=== PATIENT | female | born 2000 | race Two or more races ===

== ENCOUNTER 2023-04-20 16:40 | Emergency (ER) | payer BC, SELFPAY ==
[2023-04-20] VITALS (12 sets, daily range): BP systolic 114–150; BP diastolic 65–98; PULSE 86–115; RESP 12–24; TEMP 36.4; O2SAT 97–99; BMI 35.9
--- NOTE | 2023-04-20 16:49 | ED_ITS ---
HPI - Chest Pain General Chief Complaint: Chest Pain Stated Complaint: FAST HEART RATE Time Seen by Provider: 04/20/23 16:49 Source: patient Mode of arrival: walk-in Limitations: no limitations History of Present Illness HPI narrative: The patient presented With left-sided upper chest pain that started almost a week ago she mentioned that the pain is constant and she had a long trip of [address] trip before this happened, the patient denies any Fever chills or coughing or any exposure to anybody with similar symptoms, and did take one test at home and it was negative The patient also complaining of some nausea, and she has been feeling her heart racing Related Data Previous Rx's Medication Instructions Recorded diclofenac sodium 50 mg 50 mg PO Q12H PRN pain #10 tabs 04/20/23 tablet,delayed release Allergies Allergy/AdvReac Type Severity Reaction Status Date / Time No Known Drug Allergies Allergy Verified 04/20/23 16:49 Review of Systems ROS Status of ROS 10 or more systems reviewed and unremarkable except as noted in history and below Exam Narrative Exam Narrative: Nurses notes and vital signs reviewed and patient is not hypoxic. General: Well-appearing and in no apparent distress. Skin: Warm, dry, no pallor noted. No rash. Head: Normocephalic, atraumatic. Neck: Supple, non-tender. Eye: Pupils are equal, round and EOMI. No scleral icterus. Ears, Nose, Mouth, and Throat: TM are clear, no nasal mucosal hypertrophy. Oral mucosa is moist, no posterior oropharynx erythema, uvula is mid-line Cardiovascular: Regular Rate and Rhythm without murmur, gallop or rub. Respiratory: No accessory muscle use or respiratory distress. Lungs are clear to auscultation, no wheezing, rales or rhonchi Chest Wall: no tenderness Back: No midline thoracic or lumbar vertebral tenderness. No CVA tenderness Musculoskeletal: normal ROM, no calf or popliteal tenderness, no lower extremity edema/swelling GI: Abdomen is soft, non-distended. Normal bowel sounds. No masses appreciated. No tenderness to palpation. No rebound, guarding, or rigidity noted. Neurological: A&O x4. No cranial nerve dysfunction observed. No truncal ataxia. Moves all extremities. Sensation intact. Psychiatric: Cooperative and interactive. Normal mood and affect. Constitutional Vital Signs, click to edit/add: Last Vital Signs Temp 97.6 F 04/20/23 16:45 Pulse 86 04/20/23 19:00 Resp 24 04/20/23 19:00 BP 114/82 H 04/20/23 19:00 Pulse Ox 98 04/20/23 19:00 O2 Del Method Room Air 04/20/23 16:45 Course Vital Signs Vital signs: Vital Signs Temperature 97.6 F 04/20/23 16:45 Pulse Rate 113 H 04/20/23 16:45 Respiratory Rate 20 04/20/23 16:45 Blood Pressure 150/90 H 04/20/23 16:45 Pulse Oximetry 99 04/20/23 16:45 Oxygen Delivery Method Room Air 04/20/23 16:45 Temperature 97.6 F 04/20/23 16:45 Pulse Rate 86 04/20/23 19:00 Respiratory Rate 24 04/20/23 19:00 Blood Pressure 114/82 H 04/20/23 19:00 Pulse Oximetry 98 04/20/23 19:00 Oxygen Delivery Method Room Air 04/20/23 16:45 MDM - Chest Pain MDM Narrative Medical decision making narrative: EKG showing sinus tachycardia with a heart rate of one hundred and [address] elevation or depression CBC and chemistry should not acute pathology and the d-dimer was not elevated The patient chest x-ray is pending but it did not show any acute pathology and preliminary reading And was started on hydration as well as Toradol pt HR was 83 at the the time Toradol was provided Patient to mention that the heart rate was up and down and is not always elevated The patient is to followup with primary care physician in next 2-3 days or to return to the emergency department should any of the signs or symptoms worsen or new symptoms develop. The patient agrees with the following Diagnosis and Treatment plan and the patient will be discharged home. Lab Data Labs: Lab Results 04/20/23 Range/Units 17:08 WBC 10.1 (4.0-11.0) 10^3/uL RBC 4.77 (4.20-5.40) 10^6/uL Hgb 13.8 (12.0-16.0) g/dL Hct 40.6 (36.0-48.0) % MCV 85.1 (81.0-99.0) fL MCH 28.9 (26.7-34.0) pg MCHC 34.0 (29.9-35.2) g/dL RDW 12.1 (11.0-15.0) % Plt Count 341 (150-450) 10^3/uL MPV 9.8 (9.5-13.5) fL Neut % (Auto) 69.8 (43.0-75.0) % Lymph % (Auto) 20.6 (20.5-60.0) % [place] % (Auto) 7.1 (1.7-12.0) % Eos % (Auto) 1.7 (0.9-7.0) % Baso % (Auto) 0.5 (0.2-2.0) % Neut # (Auto) 7.0 H (1.4-6.5) 10^3/uL Lymph # (Auto) 2.1 (1.2-3.8) 10^3/uL [place] # (Auto) 0.7 (0.3-0.8) 10^3/uL Eos # (Auto) 0.2 (0.0-0.7) 10^3/uL Baso # (Auto) 0.1 (0.0-0.1) 10^3/uL Abs Immat Gran (auto) 0.03 (0.00-0.03) 10^3/uL Imm/Tot Granulo (auto) 0.3 (0.0-0.5) % PT 9.7 (9.0-11.6) sec INR <0.93 APTT 29.1 (22.3-36.2) sec D-Dimer <0.19 (<=0.59) mg/L FEU Sodium 137 (136-145) mmol/L Potassium 3.9 (3.5-5.1) mmol/L Chloride 105 (98-107) mmol/L Carbon Dioxide 25.9 (21.0-32.0) mmol/L Anion Gap 10.0 BUN 10.0 (7.0-18.0) mg/dL Creatinine 0.83 (0.55-1.02) mg/dL Est GFR ( Amer) >60 (>=60) Est GFR (Non-Af Amer) >60 (>=60) BUN/Creatinine Ratio 12.0 Glucose 102 (74-106) mg/dL Calcium 8.8 (8.5-10.1) mg/dL Total Bilirubin 0.3 (0.2-1.0) mg/dL AST 20 (15-37) U/L ALT 141 H (14-59) U/L Alkaline Phosphatase 99 (46-116) U/L Troponin I High Sens <4.0 L (4.0-51.3) pg/mL Total Protein 7.5 (6.4-8.2) g/dL Albumin 3.8 (3.4-5.0) g/dL Globulin 3.7 g/dL Albumin/Globulin Ratio 1.0 HCG, Quant <1 mIU/mL Discharge Plan Discharge Chief Complaint: Chest Pain Clinical Impression: Atypical chest pain Patient Disposition: Home, Self-Care Time of Disposition Decision: 18:44 Condition: Good Mode of Transportation: Private Vehicle Prescriptions / Home Meds: New diclofenac sodium 50 mg tablet,delayed release (DR/EC) 50 mg PO Q12H PRN (Reason: pain) Qty: 10 0RF Instructions: Chest Wall Pain (ED) Stand Alone Forms: Portal Instructions Referrals: Jolie Jacobsen MD [Primary Care Provider] - 1 week Discharge Date/Time: 04/20/23 19:15
--- NOTE | 2023-04-20 16:55 | ECG_ITS ---
The [facility] Test Date: 2023-04-20 Pat Name: Dany Perales Department: Room: - Gender: Female Maintenance Groundskeeper: : 2000 Requested By: NAN BRANCH Order Number: [id number] Reading MD: PRISCILLA MCMULLEN Measurements Intervals [place] Rate: 109 P: 57 DC: 146 QRS: 107 QRSD: 82 T: 49 QT: 330 QTc: 394 Interpretive Statements 1120 Sinus tachycardia 6220 Possible left atrial enlargement 7100 Abnormal right axis deviation 9140 abnormal rhythm ECG No previous ECG available for comparison Electronically Signed On 04-21-2023 7:12:28 EDT by PRISCILLA MCMULLEN
--- NOTE | 2023-04-20 16:55 | XR_ITS ---
The [address] [address] Patient Name: RAFA STALLWORTH MRN: [id number] date: 2000 Sex: F Assigned Patient Location: ER Current Patient Location: ER Accession/Order Number: [id number] Exam Date: 04/20/2023 18:16 Report Date: 04/20/2023 18:43 At the request of: MAKENZIE HERNANDEZ Procedure: XR chest 1V EXAM: XR chest 1V at 1742 hours HISTORY: pain COMPARISON: None. TECHNIQUE: AP upright portable chest x-ray FINDINGS: The heart is not enlarged and the vasculature is not distended. No acute infiltrate, effusion or pneumothorax is identified. The osseous structures are grossly intact. XR/XR chest 1V IMPRESSION: No acute infiltrate or evidence of cardiac decompensation. Direct comparison with a previous study may be helpful in determining the chronicity of these findings. Electronically authenticated by: ASHLEY PADILLA Date: 04/20/2023 18:43
[2023-04-20 17:35] LABS: Basophils Absolute Auto 0.1 10^3/uL (0.0-0.1); Basophils Percent Auto 0.5 % (0.2-2.0); Eosinophils Absolute Auto 0.2 10^3/uL (0.0-0.7); Eosinophils Percent Auto 1.7 % (0.9-7.0); Hematocrit 40.6 % (36.0-48.0); Hemoglobin 13.8 g/dL (12.0-16.0); Immature Granulocytes Abs Auto 0.03 10^3/uL (0.00-0.03); Immature Granulocytes Pct Auto 0.3 % (0.0-0.5); Lymphocytes Absolute Auto 2.1 10^3/uL (1.2-3.8); Lymphocytes Percent Auto 20.6 % (20.5-60.0); Mean Corpuscular Hemoglobin 28.9 pg (26.7-34.0); Mean Corpuscular Volume 85.1 fL (81.0-99.0); Mean Platelet Volume 9.8 fL (9.5-13.5); Monocytes Absolute Auto 0.7 10^3/uL (0.3-0.8); Monocytes Percent Auto 7.1 % (1.7-12.0); Neutrophils Percent Auto 69.8 % (43.0-75.0); Platelet Count 341 10^3/uL (150-450); Red Blood Count 4.77 10^6/uL (4.20-5.40); Red Cell Distribution Width 12.1 % (11.0-15.0); White Blood Count 10.1 10^3/uL (4.0-11.0)
[2023-04-20 17:56] LABS: Alanine Aminotransferase 141 U/L (14-59); Albumin Level 3.8 g/dL (3.4-5.0); Alkaline Phosphatase 99 U/L (46-116); Aspartate Amino Transferase 20 U/L (15-37); Bilirubin Total 0.3 mg/dL (0.2-1.0); Calcium 8.8 mg/dL (8.5-10.1); Carbon Dioxide 25.9 mmol/L (21.0-32.0); Chloride 105 mmol/L (98-107); Estimated GFR (African America >60 (>=60); Estimated GFR (Non-African Ame >60 (>=60); Globulin 3.7 g/dL; Glucose 102 mg/dL (74-106); HCG Quantitative <1 mIU/mL; Potassium 3.9 mmol/L (3.5-5.1); Sodium 137 mmol/L (136-145); Total Protein 7.5 g/dL (6.4-8.2); Troponin I High Sensitivity <4.0 pg/mL (4.0-51.3)
[2023-04-20 17:58] LABS: Partial Thromboplastin Time 29.1 sec (22.3-36.2); Prothrombin Time 9.7 sec (9.0-11.6)
[2023-04-20 18:04] LABS: D Dimer <0.19 mg/L FEU (<=0.59); INR <0.93
[2023-04-20] MEDS: 0.9 % SODIUM CHLORIDE 1,000 ML 1000 ML IV (18:32)
[2023-04-20] MEDS: FAMOTIDINE/PF 20 MG/2 ML VIAL IV (18:32)
[2023-04-20] MEDS: KETOROLAC TROMETHAMINE 30 MG/ML VIAL 15 MG IVP (18:33)
[2023-04-20 19:00] LABS: HCG Qualitative Urine* NEGATIVE (NEGATIVE)
== END 2023-04-20 19:15 | disposition home or self-care (01) ==
PROVIDERS: Emergency Provider Emergency Medicine; PCP Family Medicine
DX: R07.89 Other chest pain (principal)
CPT/HCPCS: 36415; 71045; 80053; 84484; 84702; 84703; 85025; 85378; 85610; 85730; 93005; 96374; 96375; 99285

== ENCOUNTER 2023-04-24 16:16 | Outpatient (OUT) | payer BC, SELFPAY ==
[2023-04-24 16:57] LABS: Bilirubin Urine NEGATIVE (NEGATIVE); Blood Urine LARGE (NEGATIVE); Clarity Urine CLEAR (CLEAR); Color Urine YELLOW (YELLOW); Glucose Urine UA NEGATIVE (NEGATIVE); Ketones Urine NEGATIVE (NEGATIVE); Leukocyte Esterase Urine NEGATIVE (NEGATIVE); Nitrite Urine NEGATIVE (NEGATIVE); Protein Urine NEGATIVE (NEG/TRACE); pH Urine 7.5 (5.0-9.0)
[2023-04-24 18:33] LABS: Free T4 0.97 ng/dL (0.76-1.46)
[2023-04-24 18:39] LABS: Thyroid Stimulating Hormone 1.421 uIU/mL (0.358-3.740)
== END 2023-04-24 16:17 | disposition home or self-care (01) ==
LOC: LAB 16:18
PROVIDERS: PCP Family Medicine; Visit Provider Family Medicine
DX: R00.0 Tachycardia, unspecified (principal); N30.00 Acute cystitis without hematuria
CPT/HCPCS: 36415; 81003; 84439; 84443; 87086

== ENCOUNTER 2023-09-02 08:46 | Emergency (ER) | payer BC, SELFPAY ==
[2023-09-02] VITALS (9 sets, daily range): BP systolic 118–157; BP diastolic 71–102; PULSE 73–74; RESP 16–18; TEMP 36.6; O2SAT 95–99; BMI 32.3
--- NOTE | 2023-09-02 09:09 | ED_ITS ---
HPI - Back Pain/Injury General Chief Complaint: Back Pain/Injury Stated Complaint: lower back pain Time Seen by Provider: 09/02/23 09:09 Source: patient Mode of arrival: Wheelchair Limitations: no limitations History of Present Illness HPI Narrative: this patient's here complaining of left back pain. She was fine when she went to work but when she got there she says sudden onset of pain in her left flank, radiates to her left abdomen. She said that she took some leftover antibiotics the last couple days ago she had a previous diagnosis of urinary tract infection. She does not know the name the antibiotic. She does not know that she has any family or personal history of kidney stones in the past. She says she's not been having any urinary symptoms but she did know some blood in her urine previously. That's why she took a leftover antibiotics. She is not running a fever. She said the pain is made worse with twisting and movement. It did not radiate down her buttock or into her leg. She denied a previous backseat skin pains. Related Data Previous Rx's Medication Instructions Recorded diclofenac sodium 50 mg 50 mg PO Q12H PRN pain #10 tabs 04/20/23 tablet,delayed release Allergies Allergy/AdvReac Type Severity Reaction Status Date / Time No Known Drug Allergies Allergy Verified 04/20/23 16:49 PFSH PFSH Social History Smoking status: Current every day smoker Exam Narrative Exam Narrative: awake alert appears tto be uncomfortable. She is afebrile. Problems specific examination shows on examination back there is no evidence of shingles skin lesions. There is a large tattoo. There is no gross kyphoscoliosis. She does have tenderness with percussion over the left renal area. Otherwise her skin and integument are normal. There is no respiratory distress she's not diaphoretic or clammy. Constitutional Vital Signs, click to edit/add: Last Vital Signs Temp 97.9 F 09/02/23 08:51 Pulse 74 09/02/23 08:51 Resp 18 09/02/23 08:51 BP 157/102 H 09/02/23 08:51 Pulse Ox 99 09/02/23 08:51 O2 Del Method Room Air 09/02/23 08:51 Course Vital Signs Vital signs: Vital Signs Temperature 97.9 F 09/02/23 08:51 Pulse Rate 74 09/02/23 08:51 Respiratory Rate 18 09/02/23 08:51 Blood Pressure 157/102 H 09/02/23 08:51 Pulse Oximetry 99 09/02/23 08:51 Oxygen Delivery Method Room Air 09/02/23 08:51 Temperature 97.9 F 09/02/23 08:51 Pulse Rate 74 09/02/23 08:51 Respiratory Rate 18 09/02/23 08:51 Blood Pressure 157/102 H 09/02/23 08:51 Pulse Oximetry 99 09/02/23 08:51 Oxygen Delivery Method Room Air 09/02/23 08:51 MDM - Back Pain/Injury MDM Narrative Medical decision making narrative: patient's CT scan discloses a 3 mm stone in the proximal ureter on the left side. There is very mild hydronephrosis. There is bilateral asymptomatic nephrolithiasis. Another other no other abnormalities. Her urinalysis does not suggest urinary tract infection. Explained these findings to the patient. We'll place her on medications for this condition and have her follow up with urology Discharge Plan Discharge Chief Complaint: Back Pain/Injury Clinical Impression: Ureterolithiasis Patient Disposition: Home, Self-Care Time of Disposition Decision: 10:46 Prescriptions / Home Meds: No Action diclofenac sodium 50 mg tablet,delayed release (DR/EC) 50 mg PO Q12H PRN (Reason: pain) Qty: 10 0RF Additional Instructions: [place]/Toradol/Flomax/Zofran/follow-up with Dr. Lopez in seventy-two hours Stand Alone Forms: Portal Instructions Referrals: Jolie Jacobsen MD [Primary Care Provider] - 1 week
[2023-09-02 09:10] LABS: Bilirubin Urine NEGATIVE (NEGATIVE); Blood Urine TRACE-I (NEGATIVE); Clarity Urine CLEAR (CLEAR); Color Urine LT. YELLOW (YELLOW); Glucose Urine UA NEGATIVE (NEGATIVE); Ketones Urine NEGATIVE (NEGATIVE); Leukocyte Esterase Urine NEGATIVE (NEGATIVE); Nitrite Urine NEGATIVE (NEGATIVE); Protein Urine NEGATIVE (NEG/TRACE); Specific Gravity Urine 1.025 (1.005-1.025); Urobilinogen Urine 0.2 EU/dL (0.2-1.0)
[2023-09-02 09:13] LABS: HCG Qualitative Urine* NEGATIVE (NEGATIVE); Urine Microscopic Indicated YES
[2023-09-02] MEDS: ONDANSETRON PF 4 MG/2 ML VIAL IV (09:23)
[2023-09-02] MEDS: KETOROLAC TROMETHAMINE 30 MG/ML VIAL IVP (09:24)
[2023-09-02] MEDS: HYDROMORPHONE HCL 1 MG/ML CARTRIDGE IVP (09:24)
[2023-09-02 09:25] LABS: Bacteria Urine SMALL #/HPF (NONE SEEN); Crystals Seen? None Seen #/HPF (None Seen); Mucus Urine NONE SEEN (NONE SEEN); RBC Urine 0-2 #/HPF (0-2); Squamous Epithelial Cell Urine FEW #/LPF (NONE/RARE); WBC Urine NONE SEEN #/HPF (NONE SEEN)
[2023-09-02 09:26] LABS: Basophils Percent Auto 0.3 % (0.2-2.0); Eosinophils Absolute Auto 0.2 10^3/uL (0.0-0.7); Eosinophils Percent Auto 1.6 % (0.9-7.0); Hematocrit 43.6 % (36.0-48.0); Hemoglobin 14.3 g/dL (12.0-16.0); Immature Granulocytes Abs Auto 0.02 10^3/uL (0.00-0.03); Immature Granulocytes Pct Auto 0.2 % (0.0-0.5); Lymphocytes Absolute Auto 2.3 10^3/uL (1.2-3.8); Lymphocytes Percent Auto 24.1 % (20.5-60.0); Mean Corpuscular HGB Conc 32.8 g/dL (29.9-35.2); Mean Corpuscular Hemoglobin 28.5 pg (26.7-34.0); Mean Corpuscular Volume 86.9 fL (81.0-99.0); Mean Platelet Volume 9.6 fL (9.5-13.5); Monocytes Absolute Auto 0.8 10^3/uL (0.3-0.8); Monocytes Percent Auto 8.2 % (1.7-12.0); Neutrophils Absolute Auto 6.1 10^3/uL (1.4-6.5); Neutrophils Percent Auto 65.6 % (43.0-75.0); Platelet Count 323 10^3/uL (150-450); Red Blood Count 5.02 10^6/uL (4.20-5.40); Red Cell Distribution Width 12.3 % (11.0-15.0); White Blood Count 9.4 10^3/uL (4.0-11.0)
[2023-09-02 09:26] LABS: Cast Seen? NONE SEEN #/LPF (NONE SEEN); Urine Culture Indicated YES
--- NOTE | 2023-09-02 09:33 | CT_ITS ---
The [address] [address] Patient Name: PRECIOUS STALLWORTH MRN: [id number] date: 2000 Sex: F Assigned Patient Location: ER Current Patient Location: ER Accession/Order Number: [id number] Exam Date: 09/02/2023 09:50 Report Date: 09/02/2023 10:17 At the request of: BRAULIO DIAMOND Procedure: CT abdomen pelvis wo con CT abdomen pelvis wo con, 09/02/2023 9:50 AM EST INDICATION: Left flank pain COMPARISON: No prior CT scan of the abdomen and pelvis available for comparison at the time this dictation. TECHNIQUE: Axial images of the abdomen and pelvis were obtained without IV contrast. Multiplanar reformatted images were generated and reviewed as needed. Dose reduction techniques were achieved by using automated exposure control and/or adjustment of mA and/or kV according to patient size and/or use of iterative reconstruction technique. FINDINGS: No consolidation or effusion. Diffuse fatty infiltration within an enlarged liver. Gallbladder, pancreas, spleen and adrenals are unremarkable on a noncontrast scan. Small bilateral nonobstructing renal calculi. 3 mm left ureteral calculus just past the UPJ with mild collecting system dilatation proximally. Urinary bladder is collapsed. Uterus and adnexa grossly unremarkable on a noncontrast scan. No aortic aneurysm. No bowel obstruction or focal inflammation. Normal appendix. No pneumatosis, pneumoperitoneum or ascites. No mesenteric or retroperitoneal lymphadenopathy. No acute fracture or dislocation. CT/CT abdomen pelvis wo con IMPRESSION: 1. 3 mm proximal left ureteral calculus with mild left hydroureteronephrosis. 2. Bilateral nonobstructing nephrolithiasis. 3. Hepatomegaly with diffuse hepatic steatosis. Electronically authenticated by: JONAS DA SILVA Date: 09/02/2023 10:17
== END 2023-09-02 10:57 | disposition home or self-care (01) ==
PROVIDERS: Emergency Provider Emergency Medicine Emergency Medical Services; PCP Family Medicine
DX: N20.1 Calculus of ureter (principal); Z87.440 Personal history of urinary (tract) infections; F17.210 Nicotine dependence, cigarettes, uncomplicated
CPT/HCPCS: 36415; 74176; 81001; 84703; 85025; 87086; 99285; J1170

== ENCOUNTER 2023-09-06 19:14 | Emergency (ER) | payer BC, SELFPAY ==
[2023-09-06 19:18] VITALS: BP 123/87; PULSE 70; RESP 14; TEMP 36.8; O2SAT 98; BMI 37.2
--- NOTE | 2023-09-06 19:42 | ED_ITS ---
HPI - Abdominal Pain General Chief Complaint: Abdominal Pain Stated Complaint: kidney stones Time Seen by Provider: 09/06/23 19:34 Source: patient Mode of arrival: walk-in History of Present Illness HPI narrative: 23 year old female presents to the ED for N/V, flank pain. She was evaluated here for the same sx on Monday09/02/23; she was diagnosed with a kidney stone. Reports she noticed blood in her emesis today. Denies fever, chills, dysuria, hematuria. Denies chance of . She is accompanied by family. She did not take her norco today. Rates her pain 10/10 at this time. Related Data Previous Rx's Medication Instructions Recorded diclofenac sodium 50 mg 50 mg PO Q12H PRN pain #10 tabs 04/20/23 tablet,delayed release promethazine 12.5 mg tablet 12.5 mg PO TID PRN nausea and 09/06/23 vomiting #6 tabs Allergies Allergy/AdvReac Type Severity Reaction Status Date / Time No Known Drug Allergies Allergy Verified 04/20/23 16:49 Review of Systems ROS Constitutional Denies: fever or chills Ears, nose, mouth, and throat Denies: throat pain Cardiovascular Denies: chest pain Respiratory Denies: shortness of breath or cough Gastrointestinal Reports: abdominal pain, nausea and vomiting; Denies: coffee grounds in vomit or diarrhea Genitourinary Reports: urinary frequency and urinary urgency; Denies: painful urination or blood in urine Musculoskeletal Reports: back pain; Denies: neck pain Integumentary/Breast Denies: rash PFSH PFSH Social History Smoking status: Current every day smoker Exam Constitutional Vital Signs, click to edit/add: Last Vital Signs Temp 98.2 F 09/06/23 19:18 Pulse 70 09/06/23 19:18 Resp 14 09/06/23 19:18 BP 123/87 09/06/23 19:18 Pulse Ox 98 09/06/23 19:18 O2 Del Method Room Air 09/06/23 19:18 Documenting provider has reviewed patient's vital signs: yes Common normals: no apparent distress and oriented x3 General appearance: cooperative; not ill appearing and not diaphoretic Other: Upon my entry to the treatment room the pt was observed sticking fingers down her throat in an attempt to force emesis. HENMT Mouth: oral and palatal mucosa normal, lip normal and tongue normal Eye Common normals: conjunctivae normal and no scleral icterus Neck & C-Spine Common normals: supple Chest Chest: symmetrical chest wall rise Respiratory Effort & inspection: able to speak in complete sentences and symmetric chest movement Cardio Common normals: regular rate and regular rhythm GI Common normals: Normal to inspection, nondistended, normoactive bowel sounds present, soft to palpation and non-tender Palpation: no guarding and not rigid Common normals: no CVA tenderness Neuro Common normals: oriented x3 Sensorium/orientation: awake and alert Course Vital Signs Vital signs: Vital Signs Temperature 98.2 F 09/06/23 19:18 Pulse Rate 70 09/06/23 19:18 Respiratory Rate 14 09/06/23 19:18 Blood Pressure 123/87 09/06/23 19:18 Pulse Oximetry 98 09/06/23 19:18 Oxygen Delivery Method Room Air 09/06/23 19:18 Temperature 98.2 F 09/06/23 19:18 Pulse Rate 70 09/06/23 19:18 Respiratory Rate 14 09/06/23 19:18 Blood Pressure 123/87 09/06/23 19:18 Pulse Oximetry 98 09/06/23 19:18 Oxygen Delivery Method Room Air 09/06/23 19:18 MDM - Abdominal Pain MDM Narrative Medical decision making narrative: She was given medication with improvement. Laboratory studies were unremarkable. Records from her previous visit were reviewed. She was encouraged to follow up with urology for a recheck, further evaluation and treatment. She has Flomax, Zofran, norco, and Toradol at home from the previous visit. A prescription was provided for phenergan. Medical Records Attestation: I reviewed the patient's medical records. Lab Data Attestation: I reviewed the patient's lab results. Labs: Lab Results 09/06/23 09/06/23 Range/Units 19:30 19:59 WBC 8.4 (4.0-11.0) 10^3/uL RBC 4.66 (4.20-5.40) 10^6/uL Hgb 13.4 (12.0-16.0) g/dL Hct 40.1 (36.0-48.0) % MCV 86.1 (81.0-99.0) fL MCH 28.8 (26.7-34.0) pg MCHC 33.4 (29.9-35.2) g/dL RDW 12.1 (11.0-15.0) % Plt Count 345 (150-450) 10^3/uL MPV 10.0 (9.5-13.5) fL Neut % (Auto) 56.8 (43.0-75.0) % Lymph % (Auto) 31.1 (20.5-60.0) % [place] % (Auto) 8.8 (1.7-12.0) % Eos % (Auto) 1.9 (0.9-7.0) % Baso % (Auto) 0.7 (0.2-2.0) % Neut # (Auto) 4.8 (1.4-6.5) 10^3/uL Lymph # (Auto) 2.6 (1.2-3.8) 10^3/uL [place] # (Auto) 0.7 (0.3-0.8) 10^3/uL Eos # (Auto) 0.2 (0.0-0.7) 10^3/uL Baso # (Auto) 0.1 (0.0-0.1) 10^3/uL Abs Immat Gran (auto) 0.06 H (0.00-0.03) 10^3/uL Imm/Tot Granulo (auto) 0.7 H (0.0-0.5) % Sodium 140 (136-145) mmol/L Potassium 4.1 (3.5-5.1) mmol/L Chloride 104 (98-107) mmol/L Carbon Dioxide 27.2 (21.0-32.0) mmol/L Anion Gap 12.9 BUN 14.0 (7.0-18.0) mg/dL Creatinine 0.83 (0.55-1.02) mg/dL Est GFR ( Amer) >60 (>=60) Est GFR (Non-Af Amer) >60 (>=60) BUN/Creatinine Ratio 16.9 Glucose 95 (74-106) mg/dL Calcium 9.0 (8.5-10.1) mg/dL Total Bilirubin 0.3 (0.2-1.0) mg/dL AST 21 (15-37) U/L ALT 72 H (14-59) U/L Alkaline Phosphatase 71 (46-116) U/L Total Protein 7.2 (6.4-8.2) g/dL Albumin 3.5 (3.4-5.0) g/dL Globulin 3.7 g/dL Albumin/Globulin Ratio 0.9 Urine Color Lt. yellow (YELLOW) Urine Clarity Clear (CLEAR) Urine pH 6.0 (5.0-9.0) Ur Specific [place] 1.015 (1.005-1.025) Urine Protein Negative (NEG/TRACE) mg/dL Urine Glucose (UA) Negative (NEGATIVE) mg/dL Urine Ketones Negative (NEGATIVE) mg/dL Urine Occult Blood Small A (NEGATIVE) Urine Nitrite Negative (NEGATIVE) Urine Bilirubin Negative (NEGATIVE) Urine Urobilinogen 1.0 (0.2-1.0) EU/dL Ur Leukocyte Esterase Trace A (NEGATIVE) Urine RBC 0-2 (0-2) #/HPF Urine WBC 0-2 A (NONE SEEN) #/HPF Ur Squamous Epith Cells Few A (NONE/RARE) #/LPF Urine Crystals None seen (None Seen) #/HPF Urine Bacteria None seen (NONE SEEN) #/HPF Urine Casts None seen (NONE SEEN) #/LPF Urine Mucus Small A (NONE SEEN) Ur Culture Indicated? No Urine HCG, Qual Negative (NEGATIVE) Discharge Plan Discharge Chief Complaint: Abdominal Pain Clinical Impression: Nausea & vomiting, Kidney stone, Flank pain Patient Disposition: Home, Self-Care Time of Disposition Decision: 20:55 Condition: Good Mode of Transportation: Private Vehicle Prescriptions / Home Meds: New promethazine 12.5 mg tablet 12.5 mg PO TID PRN (Reason: nausea and vomiting) Qty: 6 0RF Rx Instructions: 3 doses during day; last dose no later than 4 hr before bedtime No Action diclofenac sodium 50 mg tablet,delayed release (DR/EC) 50 mg PO Q12H PRN (Reason: pain) Qty: 10 0RF Instructions: Kidney Stones (ED), Acute Nausea and Vomiting (DC) Stand Alone Forms: Portal Instructions Referrals: Castro Lopez MD [Physician] - As soon as possible Jolie Jacobsen MD [Primary Care Provider] - 1 week Discharge Date/Time: 09/06/23 21:22
[2023-09-06] MEDS: 0.9 % SODIUM CHLORIDE 1,000 ML 999 ML IV (19:58)
[2023-09-06] MEDS: ONDANSETRON PF 4 MG/2 ML VIAL IV (19:58)
[2023-09-06] MEDS: MORPHINE SULFATE 2 MG/ML SYRINGE IV (19:58)
[2023-09-06 20:16] LABS: Bilirubin Urine NEGATIVE (NEGATIVE); Blood Urine SMALL (NEGATIVE); Clarity Urine CLEAR (CLEAR); Color Urine LT. YELLOW (YELLOW); Glucose Urine UA NEGATIVE (NEGATIVE); Ketones Urine NEGATIVE (NEGATIVE); Leukocyte Esterase Urine TRACE (NEGATIVE); Nitrite Urine NEGATIVE (NEGATIVE); Protein Urine NEGATIVE (NEG/TRACE); Specific Gravity Urine 1.015 (1.005-1.025)
[2023-09-06 20:17] LABS: Basophils Absolute Auto 0.1 10^3/uL (0.0-0.1); Basophils Percent Auto 0.7 % (0.2-2.0); Eosinophils Absolute Auto 0.2 10^3/uL (0.0-0.7); Eosinophils Percent Auto 1.9 % (0.9-7.0); Hematocrit 40.1 % (36.0-48.0); Hemoglobin 13.4 g/dL (12.0-16.0); Immature Granulocytes Abs Auto 0.06 10^3/uL (0.00-0.03); Immature Granulocytes Pct Auto 0.7 % (0.0-0.5); Lymphocytes Absolute Auto 2.6 10^3/uL (1.2-3.8); Lymphocytes Percent Auto 31.1 % (20.5-60.0); Mean Corpuscular HGB Conc 33.4 g/dL (29.9-35.2); Mean Corpuscular Hemoglobin 28.8 pg (26.7-34.0); Mean Corpuscular Volume 86.1 fL (81.0-99.0); Monocytes Absolute Auto 0.7 10^3/uL (0.3-0.8); Monocytes Percent Auto 8.8 % (1.7-12.0); Neutrophils Absolute Auto 4.8 10^3/uL (1.4-6.5); Neutrophils Percent Auto 56.8 % (43.0-75.0); Platelet Count 345 10^3/uL (150-450); Red Blood Count 4.66 10^6/uL (4.20-5.40); Red Cell Distribution Width 12.1 % (11.0-15.0); White Blood Count 8.4 10^3/uL (4.0-11.0)
[2023-09-06 20:19] LABS: Urine Microscopic Indicated YES
[2023-09-06 20:21] LABS: HCG Qualitative Urine* NEGATIVE (NEGATIVE)
[2023-09-06 20:26] LABS: WBC Urine 0-2 #/HPF (NONE SEEN)
[2023-09-06 20:27] LABS: Bacteria Urine NONE SEEN #/HPF (NONE SEEN); Cast Seen? NONE SEEN #/LPF (NONE SEEN); Crystals Seen? None Seen #/HPF (None Seen); Mucus Urine SMALL (NONE SEEN); RBC Urine 0-2 #/HPF (0-2); Squamous Epithelial Cell Urine FEW #/LPF (NONE/RARE); Urine Culture Indicated NO
[2023-09-06 20:31] LABS: Alanine Aminotransferase 72 U/L (14-59); Albumin Globulin Ratio 0.9; Albumin Level 3.5 g/dL (3.4-5.0); Alkaline Phosphatase 71 U/L (46-116); Anion Gap 12.9; Aspartate Amino Transferase 21 U/L (15-37); BUN Creatinine Ratio 16.9; Bilirubin Total 0.3 mg/dL (0.2-1.0); Carbon Dioxide 27.2 mmol/L (21.0-32.0); Chloride 104 mmol/L (98-107); Estimated GFR (African America >60 (>=60); Estimated GFR (Non-African Ame >60 (>=60); Globulin 3.7 g/dL; Glucose 95 mg/dL (74-106); Potassium 4.1 mmol/L (3.5-5.1); Sodium 140 mmol/L (136-145); Total Protein 7.2 g/dL (6.4-8.2)
== END 2023-09-06 21:22 | disposition home or self-care (01) ==
PROVIDERS: Nurse Practitioner Family; Emergency Provider Internal Medicine; PCP Family Medicine
DX: R11.2 Nausea with vomiting, unspecified (principal); R10.9 Unspecified abdominal pain; N20.0 Calculus of kidney; F17.210 Nicotine dependence, cigarettes, uncomplicated
CPT/HCPCS: 36415; 80053; 81001; 84703; 85025; 96374; 96375; 99285

== ENCOUNTER 2023-09-09 00:37 | Emergency (ER) | payer BC, SELFPAY ==
[2023-09-09 00:41] VITALS: BP 132/87; PULSE 64; RESP 16; TEMP 36.6; O2SAT 98; BMI 35.7
--- NOTE | 2023-09-09 01:07 | ED.ABDPAIN1 ---
HPI - Abdominal Pain General Chief Complaint: Abdominal Pain Stated Complaint: FLANK PAIN Time Seen by Provider: 09/09/23 00:39 History of Present Illness HPI narrative: 23-year-old female presents for left-sided flank and abdominal pain. She was here about a week ago and a CAT scan showed a 3 mm proximal left ureteral stone. At that time she was having pain in the left flank. Now it's radiating towards her left lower quadrant. No fever. No right-sided pain and no injury. The pain is moderate to severe and waxes and wanes. Related Data Previous Rx's Medication Instructions Recorded diclofenac sodium 50 mg 50 mg PO Q12H PRN pain #10 tabs 04/20/23 tablet,delayed release promethazine 12.5 mg tablet 12.5 mg PO TID PRN nausea and 09/06/23 vomiting #6 tabs ondansetron 4 mg disintegrating 4 mg PO Q6H PRN nausea and 09/09/23 tablet vomiting #20 tabs oxycodone-acetaminophen 5 mg-325 1 tab PO Q6H PRN pain 5 days #20 09/09/23 mg tablet (Percocet) tabs tamsulosin 0.4 mg capsule (Flomax) 0.4 mg PO DAILY #7 caps 09/09/23 Allergies Allergy/AdvReac Type Severity Reaction Status Date / Time No Known Drug Allergies Allergy Verified 09/09/23 00:47 Review of Systems ROS Narrative A ten point review of systems is negative except as noted above. PFSH PFSH Social History Smoking status: Current every day smoker Exam Narrative Exam Narrative: Nurses note and vital signs reviewed and patient is not hypoxic. General: The patient appears uncomfortable and in no apparent distress. Skin: Warm, dry, no pallor noted. There is no rash noted. Head: Normocephalic, atraumatic Eye: Normal conjunctiva, no drainage Ears, Nose, Mouth, and Throat: oral mucosa is moist. Nares patent. Cardiovascular: Regular Rate and Rhythm Respiratory: Patient is in no distress, no accessory muscle use, lungs are clear to auscultation, no wheezing, rales or rhonchi Back: non-tender, no CVA tenderness bilaterally to percussion. GI: no tenderness to palpation, no masses appreciated. No rebound, guarding, or rigidity noted. Musculoskeletal: The patient has no evidence of calf tenderness, no pitting edema, symmetrical pulses noted bilaterally Neurological: A&O, normal speech Psychiatric: Cooperative Constitutional Vital Signs, click to edit/add: Last Vital Signs Temp 97.9 F 09/09/23 00:41 Pulse 64 09/09/23 00:41 Resp 16 09/09/23 00:41 BP 132/87 09/09/23 00:41 Pulse Ox 98 09/09/23 00:41 O2 Del Method Room Air 09/09/23 00:41 Course Vital Signs Vital signs: Vital Signs Temperature 97.9 F 09/09/23 00:41 Pulse Rate 64 09/09/23 00:41 Respiratory Rate 16 09/09/23 00:41 Blood Pressure 132/87 09/09/23 00:41 Pulse Oximetry 98 09/09/23 00:41 Oxygen Delivery Method Room Air 09/09/23 00:41 Temperature 97.9 F 09/09/23 00:41 Pulse Rate 64 09/09/23 00:41 Respiratory Rate 16 09/09/23 00:41 Blood Pressure 132/87 09/09/23 00:41 Pulse Oximetry 98 09/09/23 00:41 Oxygen Delivery Method Room Air 09/09/23 00:41 MDM - Abdominal Pain MDM Narrative Medical decision making narrative: the patient is known to have a 3 mm left-sided stone. I suspect that her stone is passing, her pain has now moved towards the left side abdomen and down towards the left lower quadrant. She was given morphine here and discharged home on Flomax and Percocet and Zofran. Treatment diagnosis and follow-up were discussed with the patient. Differential Diagnosis Differential diagnosis: Likely calculus of kidney, constipation and diverticulitis Lab Data Attestation: I reviewed the patient's lab results. Labs: Lab Results 09/09/23 Range/Units 01:19 WBC 10.5 (4.0-11.0) 10^3/uL RBC 4.68 (4.20-5.40) 10^6/uL Hgb 13.4 (12.0-16.0) g/dL Hct 40.4 (36.0-48.0) % MCV 86.3 (81.0-99.0) fL MCH 28.6 (26.7-34.0) pg MCHC 33.2 (29.9-35.2) g/dL RDW 12.1 (11.0-15.0) % Plt Count 304 (150-450) 10^3/uL MPV 10.0 (9.5-13.5) fL Neut % (Auto) 62.6 (43.0-75.0) % Lymph % (Auto) 26.9 (20.5-60.0) % [place] % (Auto) 7.6 (1.7-12.0) % Eos % (Auto) 2.2 (0.9-7.0) % Baso % (Auto) 0.4 (0.2-2.0) % Neut # (Auto) 6.6 H (1.4-6.5) 10^3/uL Lymph # (Auto) 2.8 (1.2-3.8) 10^3/uL [place] # (Auto) 0.8 (0.3-0.8) 10^3/uL Eos # (Auto) 0.2 (0.0-0.7) 10^3/uL Baso # (Auto) 0.0 (0.0-0.1) 10^3/uL Abs Immat Gran (auto) 0.03 (0.00-0.03) 10^3/uL Imm/Tot Granulo (auto) 0.3 (0.0-0.5) % Sodium 139 (136-145) mmol/L Potassium 3.9 (3.5-5.1) mmol/L Chloride 104 (98-107) mmol/L Carbon Dioxide 24.5 (21.0-32.0) mmol/L Anion Gap 14.4 BUN 15.0 (7.0-18.0) mg/dL Creatinine 1.01 (0.55-1.02) mg/dL Est GFR ( Amer) >60 (>=60) Est GFR (Non-Af Amer) >60 (>=60) BUN/Creatinine Ratio 14.9 Glucose 102 (74-106) mg/dL Calcium 9.3 (8.5-10.1) mg/dL Urine Color Lt. yellow (YELLOW) Urine Clarity Clear (CLEAR) Urine pH 6.0 (5.0-9.0) Ur Specific [place] 1.010 (1.005-1.025) Urine Protein Negative (NEG/TRACE) mg/dL Urine Glucose (UA) Negative (NEGATIVE) mg/dL Urine Ketones Negative (NEGATIVE) mg/dL Urine Occult Blood Moderate A (NEGATIVE) Urine Nitrite Negative (NEGATIVE) Urine Bilirubin Negative (NEGATIVE) Urine Urobilinogen 0.2 (0.2-1.0) EU/dL Ur Leukocyte Esterase Negative (NEGATIVE) Urine RBC 2-5 A (0-2) #/HPF Urine WBC 2-5 A (NONE SEEN) #/HPF Ur Squamous Epith Cells Few A (NONE/RARE) #/LPF Urine Crystals None seen (None Seen) #/HPF Urine Bacteria Trace A (NONE SEEN) #/HPF Urine Casts None seen (NONE SEEN) #/LPF Urine Mucus None seen (NONE SEEN) Ur Culture Indicated? No Urine HCG, Qual Negative (NEGATIVE) Discharge Plan Discharge Chief Complaint: Abdominal Pain Clinical Impression: Kidney stone Patient Disposition: Home, Self-Care Time of Disposition Decision: 03:01 Condition: Good Mode of Transportation: Private Vehicle Prescriptions / Home Meds: New oxycodone-acetaminophen [Percocet] 5-325 mg tablet 1 tab PO Q6H PRN (Reason: pain) 5 Days Qty: 20 0RF tamsulosin [Flomax] 0.4 mg capsule 0.4 mg PO DAILY Qty: 7 0RF ondansetron 4 mg tablet,disintegrating 4 mg PO Q6H PRN (Reason: nausea and vomiting) Qty: 20 0RF No Action diclofenac sodium 50 mg tablet,delayed release (DR/EC) 50 mg PO Q12H PRN (Reason: pain) Qty: 10 0RF promethazine 12.5 mg tablet 12.5 mg PO TID PRN (Reason: nausea and vomiting) Qty: 6 0RF Rx Instructions: 3 doses during day; last dose no later than 4 hr before bedtime Instructions: Kidney Stones (ED) Stand Alone Forms: Portal Instructions Referrals: Jolie Jacobsen MD [Primary Care Provider] - 1 week
[2023-09-09] MEDS: 0.9 % SODIUM CHLORIDE 1,000 ML 1000 ML IV (01:28)
[2023-09-09 01:29] LABS: Basophils Percent Auto 0.4 % (0.2-2.0); Eosinophils Absolute Auto 0.2 10^3/uL (0.0-0.7); Eosinophils Percent Auto 2.2 % (0.9-7.0); Hematocrit 40.4 % (36.0-48.0); Hemoglobin 13.4 g/dL (12.0-16.0); Immature Granulocytes Abs Auto 0.03 10^3/uL (0.00-0.03); Immature Granulocytes Pct Auto 0.3 % (0.0-0.5); Lymphocytes Absolute Auto 2.8 10^3/uL (1.2-3.8); Lymphocytes Percent Auto 26.9 % (20.5-60.0); Mean Corpuscular HGB Conc 33.2 g/dL (29.9-35.2); Mean Corpuscular Hemoglobin 28.6 pg (26.7-34.0); Mean Corpuscular Volume 86.3 fL (81.0-99.0); Monocytes Absolute Auto 0.8 10^3/uL (0.3-0.8); Monocytes Percent Auto 7.6 % (1.7-12.0); Neutrophils Absolute Auto 6.6 10^3/uL (1.4-6.5); Neutrophils Percent Auto 62.6 % (43.0-75.0); Platelet Count 304 10^3/uL (150-450); Red Blood Count 4.68 10^6/uL (4.20-5.40); Red Cell Distribution Width 12.1 % (11.0-15.0); White Blood Count 10.5 10^3/uL (4.0-11.0)
[2023-09-09] MEDS: MORPHINE SULFATE 4 MG/ML VIAL IV ×2 (01:29→02:28)
[2023-09-09] MEDS: ONDANSETRON PF 4 MG/2 ML VIAL IV (01:30)
[2023-09-09 01:31] LABS: Bilirubin Urine NEGATIVE (NEGATIVE); Blood Urine MODERATE (NEGATIVE); Clarity Urine CLEAR (CLEAR); Color Urine LT. YELLOW (YELLOW); Glucose Urine UA NEGATIVE (NEGATIVE); HCG Qualitative Urine* NEGATIVE (NEGATIVE); Ketones Urine NEGATIVE (NEGATIVE); Leukocyte Esterase Urine NEGATIVE (NEGATIVE); Nitrite Urine NEGATIVE (NEGATIVE); Protein Urine NEGATIVE (NEG/TRACE); Urobilinogen Urine 0.2 EU/dL (0.2-1.0)
[2023-09-09 01:38] LABS: Anion Gap 14.4; BUN Creatinine Ratio 14.9; Calcium 9.3 mg/dL (8.5-10.1); Carbon Dioxide 24.5 mmol/L (21.0-32.0); Chloride 104 mmol/L (98-107); Estimated GFR (African America >60 (>=60); Estimated GFR (Non-African Ame >60 (>=60); Glucose 102 mg/dL (74-106); Potassium 3.9 mmol/L (3.5-5.1); Sodium 139 mmol/L (136-145)
[2023-09-09 01:39] LABS: Bacteria Urine TRACE #/HPF (NONE SEEN); Cast Seen? NONE SEEN #/LPF (NONE SEEN); Crystals Seen? None Seen #/HPF (None Seen); Mucus Urine NONE SEEN (NONE SEEN); Squamous Epithelial Cell Urine FEW #/LPF (NONE/RARE); Urine Culture Indicated NO
[2023-09-09] MEDS: OXYCODONE HCL/ACETAMINOPHEN 5MG/325MG 1 TAB PO (03:18)
[2023-09-09 03:25] VITALS: BP 113/75; PULSE 66; RESP 116; O2SAT 99
== END 2023-09-09 03:25 | disposition home or self-care (01) ==
PROVIDERS: Emergency Provider Emergency Medicine; PCP Family Medicine
DX: N20.0 Calculus of kidney (principal); F17.210 Nicotine dependence, cigarettes, uncomplicated
CPT/HCPCS: 36415; 80048; 81001; 84703; 85025; 96374; 96375; 96376; 99284

== ENCOUNTER 2023-10-13 23:23 | Emergency (ER) | payer BC, SELFPAY ==
[2023-10-13 23:28] VITALS: BP 127/74; PULSE 90; RESP 16; TEMP 36.7; O2SAT 100; BMI 36.8
--- OUTSIDE RECORDS SUMMARY | 2023-10-13 23:28 | XMS_ITS | CCD ---
Author Name Unknown Address [address] [place] [address] [address] [place] [address] Organization [facility] Care Team Providers Care Logistics Operations Manager Name Role Phone DR JOLIE JACOBSEN Consulting Unavailable SARINA, DR JOLIE Maria Attending Unavailable DR JOLIE JACOBSEN Admitting Unavailable DR JOLIE JACOBSEN Primary Care Unavailable Jolie Jacobsen Castro RAO Attending Unavailable Castro RAO Attending Unavailable Allergies Allergy Classification Reported Allergen(s) Allergy Type Date of Onset Reaction(s) Facility (1 source) patient allergy list reviewed by nurse or physicia Propensity to adverse reactions 5 Comment:Done [facility] Other (1 source) Allergies Reconciled Propensity to adverse reactions Unknown [facility] Other Medications Current Medications Medication Drug Class(es) Dates Sig (Normalized) Sig (Original) sertraline 25 mg oral tablet (1 source) Serotonin Reuptake Inhibitor take 1 tablet by mouth once daily Sertraline HCl 25 MG 1 tablet Orally Once a day for 30 days Active sulfamethoxazole 800 mg / trimethoprim 160 mg oral tablet (1 source) Dihydrofolate Reductase Inhibitor Antibacterial, Sulfonamide Antimicrobial take 1 tablet by mouth every twelve hours Bactrim DS 800-160 MG 1 tablet Orally Twice a day for 7 days Active Problems Active Problems Problem Classification Problem Date Documented Date Episodic/Chronic Anxiety disorders (2 sources) Generalized anxiety disorder; Translations: [Generalized anxiety disorder] Chronic Other connective tissue disease (1 source) Pain in right lower limb; Translations: [Pain in right leg] Episodic Other lower respiratory disease (1 source) Cough; Translations: [Cough, unspecified] Episodic Other nutritional; endocrine; and metabolic disorders (1 source) Obese class I; Translations: [Body mass index (BMI) 32.0-32.9, adult] Chronic Other upper respiratory disease (1 source) Allergic rhinitis; Translations: [Allergic rhinitis, unspecified] Onset: 02-19-2015 Chronic Residual codes; unclassified (1 source) Insomnia; Translations: [Insomnia, unspecified] Episodic Unclassified (2 sources) CONTACT W/AND (SUSP) EXPOS COVID-19; Translations: [CONTACT W/AND (SUSP) EXPOS COVID-19] Onset: 09-25-2021 Unclassified (1 source) Vaccination needed; Translations: [Need for prophylactic vaccination and inoculation, Other viral diseases] Onset: 03-20-2017 Unclassified (1 source) Vaccine product containing only acellular Bordetella pertussis and Clostridium tetani and Corynebacterium diphtheriae antigens (medicinal product); Translations: [Fnwbjacshp-oesrohm-k ertussis, combined [DTP] [DtaP]] Onset: 01-23-2014 Viral infection (1 source) COVID-19; Translations: [COVID-19] Onset: 09-25-2021 Past or Other Problems Problem Classification Problem Date Documented Date Episodic/Chronic Noninfectious gastroenteritis (1 source) Non-infective enteritis and colitis; Translations: [Noninfective gastroenteritis and colitis, unspecified] Onset: 12-08-2015 Episodic Unclassified (1 source) CONTACT W/AND (SUSP) EXPOS COVID-19; Translations: [CONTACT W/AND (SUSP) EXPOS COVID-19] Onset: 09-21-2021 Viral infection (1 source) Verruca plantaris; Translations: [Plantar wart] Onset: 12-08-2015 Episodic Results Test Name Value Interpretation Reference Range [facility] ED Note-Physicianon 09-08-20 ED Note-Physician [id number] Normal [facility] Covid-19 PCR (CVDTBH)on 09-08 SARS-CoV-2 (COVID-19) RNA VI+probe Ql (Unsp spec) Detected Critically abnormal NOT DETECTED [facility] Comment on above: Result Comment: This test is not yet gary roved or cleared by the [place] FDA. When there are no FDA-approved or cleared tests available, and other criteria are met, FDA can make tests available under an emergency access mechanism called an Emergency Use Authorization (EUA). The EUA for this test is supported by the [place] of Health and Human Service's (HHS's) declaration that circumstances exist to justify the emergency use of in vitro diagnostics for the detection and/or diagnosis of the virus that causes COVID-19. This EUA will remain in effect (meaning this test can be used) for the duration of the COVID-19 declaration justifying emergency of IVDs, unless it is terminated or revoked by FDA (after which the test may no longer be used). Performed By: #### [facility] #### [facility] Laboratory [address] [address] [address] José Manuel Benavidez PROGRESSon 12-18-2019 PROGRESS HNO ID: [id number] Author: Chito Contreras Service: ? Author Type: Physician Type: Progress Notes Filed: 12/21/2019 1:17 PM Note Text: [facility] Gabriel Stallworth is a 19 year old female seen today for Initial evaluation for MEPS examination for posterior tibial tendon function and ability to walk/run long distances. She states in her own words I am here to be evaluated for fallen arches . She states she has no foot pain, runs a mile/day, lifts weights and does squats. She denies any trauma. Here PCP is Jolie Jacobsen in [facility]. No current outpatient medications on file. No current facility-administer ed medications for this visit. History reviewed. No pertinent past medical history. History reviewed. No pertinent surgical history. Social History Tobacco Use - Smoking status: Never Smoker - Smokeless tobacco: Never Used Substance Use Topics - Alcohol use: Not on file - Drug use: Not on file History reviewed. No pertinent family history. ALLERGIES Not on File Ht 4' 9 (1.45m) Wt 128 lb (58.1kg) BMI 27.69 kg/(m2). Examination: Patient appears to alert and orientated x 3 and in no apparent acute distress. Vascular Exam: DP Right: +2/4 Left: +2/4 PT Right: +2/4 Left: +2/4. Normal hair growth. Denies calf pain with ambulation. Capillary fill time < 3seconds to digits 1-5 b/l. No evidence of peripheral vascular disease. Skin temperature warm to warm from tibial tuberosity to digits B/L. Neurological Exam: Epicritic and protective sensation grossly intact to both feet. No focal deficits noted. Dermatologic Exam: Normal skin color texture and turgor. Skin appears to be Well hydrated, supple both feet. Webspaces clean and dry 1-4 B/L. No open lesions noted. Musculoskeletal/Ort hopedic Exam: +5/5 muscle strength with dorsiflexion, plantarflexion, inversion and eversion. Normal ROM pedal and ankle joints. She has normal arch instep both feet. I do not see lowering of her arches upon exam. Her arches/instep appears normal bilateral. She has no discomfort with muscle testing along the posterior tibial tendons both feet. She is able to get up from her knees barefoot. Weight bearing X/rays 2 Views: AP,LAT bilateral foot. X/rays demonstrate normal arch instep both feet (no evidence of fallen arches, if anything slight increase arch both feet). Open joint spaces on both AP/LAT views. AP and lateral views appear within normal limits. Diagnosis: Examination for posterior tibial tendon function and ability to walk/run long distances. Plan: Treatment, evaluation of lower extremity. Weight bearing x/rays 2 Views: AP,LAT bilateral foot Reviewed x/rays with patient. Evaluation of both feet/ankles do not demonstrated any pathology to the posterior tibial tendon and ability to walk/run. Arch instep appears to be within normal limits. Reviewed stretching exercises as need. Patient education was provided to the patient in conversation during this encounter. Eligible professional attests to documenting the patients current medications (none mentioned) to the best of his/hercurrent knowledge and ability. Chito Contreras DPM, FACFAS December 18, 2019 Electronically Signed This document has been created with the use of voice recognition technology. It may contain inaccuracies, misspellings or incorrect syntax that escaped review. Normal [facility] Encounters Encounter Date Encounter Type Care Provider Facility Start: 10-31-2023 ambulatory Castro RAO Facility :[facility] Start: 09-22-2023 End: 09-23-2023 ambulatory Castro RAO Facility:[facility] Start: 09-07-2023 ambulatory Castro RAO Facility:[facility] Start: 05-24-2023 End: 08-16-2023 ambulatory Jolie Jacobsen Other [facility] Other Start: 05-24-2023 Telephone encounter Jolie Jacobsen [facility] Start: 06-15-2022 Child health medical examination Jolie Jacobsen Other [facility] Other Start: 06-15-2022 Gynecological examin ation normal Jolie Jacobsen Other [facility] Other Start: 09-21-2021 End: 09-21-[address] JOLIE JACOBSEN Facility:[facility] Immunizations Immunization Date Immunization Notes Care Provider Fa cility 03-20-2017 human papilloma viru s vaccine, quadrivalent Jolie Jacobsen Other [facility] Other 01-23-2014 diphtheria, tetanus toxoids and acellular pertussis vaccine, unspecified formulation Jolie Jacobsen Other [facility] Other Payers Date Payer Category Payer Unknown [id number] 1957 Unknown [id number] Social History Date Type Detail Facility Unknown if ever smoked [facility] Other Sex Assigned At Sex Assigned At Bir th [facility] Other Evaluation note Note Date & Type Note Facility Evaluation note No Information [facility] Other History general Narrative - Reported Note Date & Type Note Facility History general Narrative - Reported Type Surgical History Problem Title : past surgical history reviewed, Problem Description : past surgical history reviewed, Problem Comment : reviewed - no changes required, Problem Status : Inactive, [facility] Other Summary Purpose Family History No Family History Records FoundNo Family History Records FoundNo Family History Records Found Advance Directives No Advanced Directives Records FoundNo Advanced Directives Records FoundNo Advanced Directives Records Found Additional Source Comments INFORMATION SOURCE (unrecogn ized section and content) DATE CREATED AUTHOR 12/21/2019 [facility] DATE CREATED AUTHOR AUTHOR'S ORGANIZ ATION 09/26/2021 [facility] DATE CREATED AUTHOR AUTHOR'S ORGANIZ ATION 09/24/2023 [facility] REASON FOR VISIT (unrecogniz ed section and content) cardio referral FOR RECORDS PERTAINING TO PATIENTS WHO ARE OR HAVE BEEN ENROLLED IN A CHEMICAL DEPENDENCY/SUBSTANCEABUSE PROGRAM, SOME INFORMATION MAY BE OMITTED. This clinical summary was aggregated from multiple sources. Caution should be exercised in using it in the provision of clinical care. This summary normalizes information from multiple sources, and as a consequence, information in this document may materially change the coding, format and clinical context of patient data. In addition, data may be omitted in some cases. CLINICAL DECISIONS SHOULD BE BASED ON THE PRIMARY CLINICAL RECORDS. [employer] provides no warranty or guarantee of the accuracy or completeness of information in this document.
--- NOTE | 2023-10-13 23:35 | PC.NURSE ---
Pt reports blood in urine x1 day, bilateral flank pain. DX with stone last month with improvement in symptoms.
--- NOTE | 2023-10-13 23:44 | CT_ITS ---
The [address] [address] Patient Name: PRECIOUS STALLWORTH MRN: [id number] date: 2000 Sex: F Assigned Patient Location: ER Current Patient Location: ER Accession/Order Number: [id number] Exam Date: 10/13/2023 23:59 Report Date: 10/14/2023 00:47 At the request of: CHANTE HEAD Procedure: CT abdomen pelvis wo con EXAM: CT abdomen pelvis wo con HISTORY: flank pain, recent stone low back pain. Blood in urine. COMPARISON: CT abdomen pelvis 09/02/2023 TECHNIQUE: Multiple axial views CT abdomen pelvis without IV contrast. Coronal sagittal reformats. FINDINGS: Visualized lung bases and cardiac apex are unremarkable. Diffuse severe hepatic steatosis and hepatomegaly. Gallbladder, pancreas, spleen, adrenal glands, and appendix are unremarkable. Multiple 1-2 mm nonobstructing bilateral renal stones (at least 2 calculi on each side better seen by coronal image). No radiopaque ureteral stone, urinary bladder stone, or hydronephrosis. Urinary bladder is underdistended. Uterus and other pelvic structures are unremarkable by noncontrast CT exam. Tampon within the vaginal canal. Moderate amount of stool within the cecum. No evidence for small bowel obstruction, large ascites, or free air. No acute bony abnormality. Unremarkable lumbar alignments. No severe bony canal narrowing. CT/CT abdomen pelvis wo con IMPRESSION: Multiple 1-2 mm nonobstructing bilateral renal stones (at least 2 calculi on each side better seen by coronal image). No radiopaque ureteral stone, urinary bladder stone, or hydronephrosis. Diffuse severe hepatic steatosis and hepatomegaly. Electronically authenticated by: SHANNAN VALADEZ Date: 10/14/2023 00:47
--- NOTE | 2023-10-13 23:44 | ED.FEMALEGU1 ---
HPI - Female Genitourinary General Chief complaint: Urogenital-Female Stated complaint: NASEAU, LOWER BACK PAIN Time Seen by Provider: 10/13/23 23:26 History of Present Illness HPI Narrative: 23-year-old female presents for lower back pain and hematuria. She had been diagnosed with a kidney stone about a month ago and hasn't yet had follow-up. Her symptoms returned last night and she had some hematuria yesterday, none today. No trauma or fever. The pain is moderate and continuous. Related Data Home Medications Medication Instructions Recorded Confirmed norgestimate 0.25 mg-ethinyl tab 10/13/23 estradiol 35 mcg tablet sertraline 25 mg tablet mg 10/13/23 Previous Rx's Medication Instructions Recorded diclofenac sodium 50 mg 50 mg PO Q12H PRN pain #10 tabs 04/20/23 tablet,delayed release acetaminophen 300 mg-codeine 30 mg 1 tab PO Q6H PRN pain 5 days #20 10/14/23 tablet tabs Allergies Allergy/AdvReac Type Severity Reaction Status Date / Time No Known Drug Allergies Allergy Verified 10/13/23 23:31 Review of Systems ROS Narrative A ten point review of systems is negative except as noted above. PFSH PFSH Social History Smoking status: Current every day smoker Exam Narrative Exam Narrative: Nurses note and vital signs reviewed and patient is not hypoxic. General: The patient appears uncomfortable Skin: Warm, dry, no pallor noted. There is no rash noted. Head: Normocephalic, atraumatic Eye: Normal conjunctiva, no drainage Ears, Nose, Mouth, and Throat: oral mucosa is moist. Nares patent. Cardiovascular: Regular Rate and Rhythm Respiratory: Patient is in no distress, no accessory muscle use, lungs are clear to auscultation, no wheezing, rales or rhonchi Back: non-tender GI: no tenderness to palpation, no masses appreciated. No rebound, guarding, or rigidity noted. Musculoskeletal: The patient has no evidence of calf tenderness, no pitting edema, symmetrical pulses noted bilaterally Neurological: A&O, normal speech Psychiatric: Cooperative Constitutional Vital Signs, click to edit/add: Last Vital Signs Temp 98.0 F 10/13/23 23:28 Pulse 90 10/13/23 23:28 Resp 16 10/13/23 23:28 BP 127/74 10/13/23 23:28 Pulse Ox 100 10/13/23 23:28 O2 Del Method Room Air 10/13/23 23:28 Course Vital Signs Vital signs: Vital Signs Temperature 98.0 F 10/13/23 23:28 Pulse Rate 90 10/13/23 23:28 Respiratory Rate 16 10/13/23 23:28 Blood Pressure 127/74 10/13/23 23:28 Pulse Oximetry 100 10/13/23 23:28 Oxygen Delivery Method Room Air 10/13/23 23:28 Temperature 98.0 F 10/13/23 23:28 Pulse Rate 90 10/13/23 23:28 Respiratory Rate 16 10/13/23 23:28 Blood Pressure 127/74 10/13/23 23:28 Pulse Oximetry 100 10/13/23 23:28 Oxygen Delivery Method Room Air 10/13/23 23:28 MDM - Female Genitourinary MDM Narrative Medical decision making narrative: the reason 3 mm stone has not passed. Findings are discussed with the patient and she is able to be discharged home. Differential Diagnosis Differential diagnosis: Likely urinary tract infection and other (kidney stone, hydronephrosis) Medical Records Attestation: I reviewed the patient's medical records. Lab Data Attestation: I reviewed the patient's lab results. Labs: Lab Results 10/13/23 10/13/23 10/13/23 Range/Units 00:03 23:35 23:41 WBC 9.3 (4.0-11.0) 10^3/uL RBC 4.82 (4.20-5.40) 10^6/uL Hgb 13.8 (12.0-16.0) g/dL Hct 41.6 (36.0-48.0) % MCV 86.3 (81.0-99.0) fL MCH 28.6 (26.7-34.0) pg MCHC 33.2 (29.9-35.2) g/dL RDW 12.3 (11.0-15.0) % Plt Count 307 (150-450) 10^3/uL MPV 10.5 (9.5-13.5) fL Neut % (Auto) 56.6 (43.0-75.0) % Lymph % (Auto) 32.3 (20.5-60.0) % [place] % (Auto) 7.9 (1.7-12.0) % Eos % (Auto) 2.4 (0.9-7.0) % Baso % (Auto) 0.5 (0.2-2.0) % Neut # (Auto) 5.3 (1.4-6.5) 10^3/uL Lymph # (Auto) 3.0 (1.2-3.8) 10^3/uL [place] # (Auto) 0.7 (0.3-0.8) 10^3/uL Eos # (Auto) 0.2 (0.0-0.7) 10^3/uL Baso # (Auto) 0.1 (0.0-0.1) 10^3/uL Abs Immat Gran (auto) 0.03 (0.00-0.03) 10^3/uL Imm/Tot Granulo (auto) 0.3 (0.0-0.5) % Sodium 134 L (136-145) mmol/L Potassium 3.7 (3.5-5.1) mmol/L Chloride 102 (98-107) mmol/L Carbon Dioxide 23.2 (21.0-32.0) mmol/L Anion Gap 12.5 BUN 11.0 (7.0-18.0) mg/dL Creatinine 0.68 (0.55-1.02) mg/dL Est GFR ( Amer) >60 (>=60) Est GFR (Non-Af Amer) >60 (>=60) BUN/Creatinine Ratio 16.2 Glucose 114 H (74-106) mg/dL Calcium 9.1 (8.5-10.1) mg/dL Urine Color Yellow (YELLOW) Urine Clarity Clear (CLEAR) Urine pH 6.0 (5.0-9.0) Ur Specific [place] 1.015 (1.005-1.025) Urine Protein Negative (NEG/TRACE) mg/dL Urine Glucose (UA) Negative (NEGATIVE) mg/dL Urine Ketones Trace A (NEGATIVE) mg/dL Urine Occult Blood Trace-i (NEGATIVE) Urine Nitrite Negative (NEGATIVE) Urine Bilirubin Negative (NEGATIVE) Urine Urobilinogen 0.2 (0.2-1.0) EU/dL Ur Leukocyte Esterase Negative (NEGATIVE) Urine RBC 2-5 A (0-2) #/HPF Urine WBC None seen (NONE SEEN) #/HPF Ur Squamous Epith Cells None seen (NONE/RARE) #/LPF Urine Crystals None seen (None Seen) #/HPF Urine Bacteria None seen (NONE SEEN) #/HPF Urine Casts None seen (NONE SEEN) #/LPF Urine Mucus None seen (NONE SEEN) Urine HCG, Qual Negative (NEGATIVE) Imaging Data CT scan - abdomen: Radiologist's impression: Procedure: CT abdomen pelvis wo con EXAM: CT abdomen pelvis wo con HISTORY: flank pain, recent stone low back pain. Blood in urine. COMPARISON: CT abdomen pelvis 09/02/2023 TECHNIQUE: Multiple axial views CT abdomen pelvis without IV contrast. Coronal sagittal reformats. FINDINGS: Visualized lung bases and cardiac apex are unremarkable. Diffuse severe hepatic steatosis and hepatomegaly. Gallbladder, pancreas, spleen, adrenal glands, and appendix are unremarkable. Multiple 1-2 mm nonobstructing bilateral renal stones (at least 2 calculi on each side better seen by coronal image). No radiopaque ureteral stone, urinary bladder stone, or hydronephrosis. Urinary bladder is underdistended. Uterus and other pelvic structures are unremarkable by noncontrast CT exam. Tampon within the vaginal canal. Moderate amount of stool within the cecum. No evidence for small bowel obstruction, large ascites, or free air. No acute bony abnormality. Unremarkable lumbar alignments. No severe bony canal narrowing. IMPRESSION: Multiple 1-2 mm nonobstructing bilateral renal stones (at least 2 calculi on each side better seen by coronal image). No radiopaque ureteral stone, urinary bladder stone, or hydronephrosis. Diffuse severe hepatic steatosis and hepatomegaly. Electronically authenticated by: SHANNAN VALADEZ Date: 10/14/2023 00:47 Discharge Plan Discharge Chief Complaint: Urogenital-Female Clinical Impression: Renal colic Patient Disposition: Home, Self-Care Time of Disposition Decision: 00:56 Condition: Good Mode of Transportation: Private Vehicle Prescriptions / Home Meds: New acetaminophen-codeine 300-30 mg tablet 1 tab PO Q6H PRN (Reason: pain) 5 Days Qty: 20 0RF No Action diclofenac sodium 50 mg tablet,delayed release (DR/EC) 50 mg PO Q12H PRN (Reason: pain) Qty: 10 0RF norgestimate-ethinyl estradiol 0.25-35 mg-mcg tablet sertraline 25 mg tablet Instructions: Renal Colic (ED) Additional Instructions: see your urologist at your appointment Stand Alone Forms: Portal Instructions Referrals: Jolie Jacobsen MD [Primary Care Provider] - 1 week
[2023-10-13 23:58] LABS: Bilirubin Urine NEGATIVE (NEGATIVE); Blood Urine TRACE-I (NEGATIVE); Clarity Urine CLEAR (CLEAR); Color Urine YELLOW (YELLOW); Glucose Urine UA NEGATIVE (NEGATIVE); Ketones Urine TRACE mg/dL (NEGATIVE); Leukocyte Esterase Urine NEGATIVE (NEGATIVE); Nitrite Urine NEGATIVE (NEGATIVE); Protein Urine NEGATIVE (NEG/TRACE); Specific Gravity Urine 1.015 (1.005-1.025); Urobilinogen Urine 0.2 EU/dL (0.2-1.0)
[2023-10-14] LABS: HCG Qualitative Urine* NEGATIVE (NEGATIVE)
[2023-10-14] MEDS: MORPHINE SULFATE 4 MG/ML VIAL IV (00:08)
[2023-10-14] MEDS: ONDANSETRON PF 4 MG/2 ML VIAL IV (00:08)
[2023-10-14 00:11] LABS: WBC Urine NONE SEEN #/HPF (NONE SEEN)
[2023-10-14 00:12] LABS: Bacteria Urine NONE SEEN #/HPF (NONE SEEN); Cast Seen? NONE SEEN #/LPF (NONE SEEN); Crystals Seen? None Seen #/HPF (None Seen); Mucus Urine NONE SEEN (NONE SEEN); Squamous Epithelial Cell Urine NONE SEEN #/LPF (NONE/RARE)
[2023-10-14 00:43] LABS: Basophils Absolute Auto 0.1 10^3/uL (0.0-0.1); Basophils Percent Auto 0.5 % (0.2-2.0); Eosinophils Absolute Auto 0.2 10^3/uL (0.0-0.7); Eosinophils Percent Auto 2.4 % (0.9-7.0); Hematocrit 41.6 % (36.0-48.0); Hemoglobin 13.8 g/dL (12.0-16.0); Immature Granulocytes Abs Auto 0.03 10^3/uL (0.00-0.03); Immature Granulocytes Pct Auto 0.3 % (0.0-0.5); Lymphocytes Percent Auto 32.3 % (20.5-60.0); Mean Corpuscular HGB Conc 33.2 g/dL (29.9-35.2); Mean Corpuscular Hemoglobin 28.6 pg (26.7-34.0); Mean Corpuscular Volume 86.3 fL (81.0-99.0); Mean Platelet Volume 10.5 fL (9.5-13.5); Monocytes Absolute Auto 0.7 10^3/uL (0.3-0.8); Monocytes Percent Auto 7.9 % (1.7-12.0); Neutrophils Absolute Auto 5.3 10^3/uL (1.4-6.5); Neutrophils Percent Auto 56.6 % (43.0-75.0); Platelet Count 307 10^3/uL (150-450); Red Blood Count 4.82 10^6/uL (4.20-5.40); Red Cell Distribution Width 12.3 % (11.0-15.0); White Blood Count 9.3 10^3/uL (4.0-11.0)
[2023-10-14 00:48] LABS: Anion Gap 12.5; BUN Creatinine Ratio 16.2; Calcium 9.1 mg/dL (8.5-10.1); Carbon Dioxide 23.2 mmol/L (21.0-32.0); Chloride 102 mmol/L (98-107); Estimated GFR (African America >60 (>=60); Estimated GFR (Non-African Ame >60 (>=60); Glucose 114 mg/dL (74-106); Potassium 3.7 mmol/L (3.5-5.1); Sodium 134 mmol/L (136-145)
[2023-10-14] MEDS: KETOROLAC TROMETHAMINE 30 MG/ML VIAL IVP (01:03)
[2023-10-14 01:11] VITALS: BP 122/74; PULSE 78; RESP 14; O2SAT 99
== END 2023-10-14 01:10 | disposition home or self-care (01) ==
PROVIDERS: Emergency Provider Emergency Medicine; PCP Family Medicine
DX: N23 Unspecified renal colic (principal); F17.210 Nicotine dependence, cigarettes, uncomplicated; N20.0 Calculus of kidney; Z79.899 Other long term (current) drug therapy
CPT/HCPCS: 36415; 74176; 80048; 81001; 84703; 85025; 96374; 96375; 99284; J1885; J2270; J2405